=== PATIENT | male | born 1950 | race Caucasian/White ===

== ENCOUNTER 2016-06-05 07:02 | Emergency (ER) | payer OTHER ==
[2016-06-05 07:14] VITALS: BP 127/80
--- NOTE | 2016-06-05 07:43 | UC ---
Carlos Alonzo Alok, scribed for Karoline Fishman MD on 06/05/16 at 0730 . Respiratory Complaint HPI - HPI Summary HPI Summary: 65 y/o male presents to the with a productive cough with yellow sputum for the past three days. The pt has not taken any OTC medications for his pain or cough. Pt also c/o jaw pain from his ears down to his jaw on both sides of his face, facial pressure, ear fullness, as well as wheezing. Pt denies nausea, vomit, or fever. no chills or rash. Pt uses symbicort daily. Pt has an albuterol MDI does not use. Pt with a h/o PNA and wanted to evaluated for same. Pt is allergic to penicillins which cause rashes. Pt is a former smoker and denies ETOH use and exposure for chemicals at the work place. PMHx includes PNA 3 years ago. PSHx includes appendicitis and umbilical hernia. Pt's medication reviewed at this visit - History of Current Complaint Chief Complaint: UCRespiratory Stated Complaint: CONGESTION COUGH Time Seen by Provider: 06/05/16 07:07 Hx Obtained From: Patient Onset/Duration: Gradual Onset, Lasting Days, Still Present Severity Initially: Moderate Severity Currently: Moderate Pain Intensity: 4 Pain Scale Used: 0-10 Numeric Character: Sputum Description: - Yellow Aggravating Factors: Nothing Alleviating Factors: Nothing Associated Signs And Symptoms: Positive: Wheezing - Allergies/Home Medications Allergies/Adverse Reactions: Allergies Allergy/AdvReac Type Severity Reaction Status Date / Time Penicillins Allergy Unknown Verified 06/05/16 07:14 Reaction Details Home Medications: Home Medications Budesonide/Formote 160/4.5(NF) [Symbicort 160/4.5 (NF)] 06/05/16 [History Confirmed 06/05/16] PMH/Surg Hx/FS Hx/Imm Hx Previously Healthy: Yes Endocrine History Of: Denies: Diabetes Cardiovascular History Of: Reports: Hypertension Respiratory History Of: Reports: COPD - Surgical History Surgical History: Yes Surgery Procedure, Year, and Place: appendectomy. umbilical hernia - Family History Known Family History: Positive: Cardiac Disease, Hypertension - Social History Occupation: Employed Full-time Alcohol Use: None Substance Use Type: None Smoking Status (MU): Former Smoker Review of Systems Constitutional: Negative Skin: Negative Eyes: Negative ENT: Sore Throat, Ear Ache, Nasal Discharge, Other - Jaw pain Respiratory: Cough, Other - Wheezing Cardiovascular: Negative Gastrointestinal: Negative Genitourinary: Negative Motor: Negative Neurovascular: Negative Musculoskeletal: Negative Neurological: Negative Psychological: Negative All Other Systems Reviewed And Are Negative: Yes Physical Exam Triage Information Reviewed: Yes Appearance: Well-Appearing, No Pain Distress, Well-Nourished Vital Signs: Initial Vital Signs Temp 98.1 F 06/05/16 07:10 Pulse 88 06/05/16 07:10 Resp 18 06/05/16 07:10 BP 127/80 06/05/16 07:10 Pulse Ox 95 06/05/16 07:10 Eye Exam: Normal Eyes: Positive: Conjunctiva Clear ENT: Positive: Hearing grossly normal, Nasal congestion, Other: - left TM obscurred by cerum, right TM + fluid, retracted turbinates inflammed and boggy + PND + erythema, no exudate uvula midline Dental Exam: Normal Neck exam: Normal Neck: Positive: 1 Respiratory Exam: Normal Respiratory: Positive: Wheezing - few, scattered wheezes, Other: - speaking full , easy sentences No increased WOB, accessory muscle uses + intermittent, coarse cough Cardiovascular Exam: Normal Cardiovascular: Positive: RRR, No Murmur Abdominal Exam: Normal Musculoskeletal Exam: Normal Neurological Exam: Normal Neurological: Positive: Alert, Muscle Tone Normal Psychological Exam: Normal Skin Exam: Normal UC Diagnostic Evaluation - Laboratory O2 Sat by Pulse Oximetry: 95 - Radiology Xray Interpretation: Positive (See Comments) - CXR - IMPRESSION: HYPERINFLATION , CONSISTENT WITH COPD. NO ACTIVE CARDIOPULMONARY DISEASE. Radiology Interpretation Completed By: Radiologist Re-Evaluation - Re-Evaluation First Eval Re-Evaluation Time: 07:52 Respiratory Course/Dx - Course Course Of Treatment: Pt presents with 3 days face congestion, pnd, productive cough and fatigue. Pt denies fevers, chills concerned for PNA. Pt with sinus congestion, PND and wheeze on exam. dif: pna, bronchitis, sinusitis. Will check CXR. encourage Albuterol Q4hr. hydrate. abx. flonase - Differential Dx/Diagnosis Provider Diagnoses: sinusitis Discharge - Discharge Plan Condition: Stable Disposition: HOME Prescriptions: Azithromycin TAB* [Zithromax TAB (Z-JOAQUIN) 250 mg #6 tabs] 2 tab PO .TODAY, THEN 1 DAILY #1 joaquin Fluticasone NASAL SPRAY 50MCG* [Flonase NASAL SPRAY 50MCG*] 1 spray BOTH NARES DAILY #1 btl Patient Education Materials: Sinusitis (ED), Acute Bronchitis (ED) Referrals: No Primary Care Phys,NOPCP [Primary Care Provider] - Additional Instructions: - Stay well hydrated. Drink plenty of non-alcoholic, non-caffinated beverages. - Use albuterol - 2 puffs every 4 hours - Take flonase, nasal spray as instructed - Take antibiotics as prescribed until gone - Okay to alternate ibuprofen (advil, motrin) and tylenol every 3hours as needed for pain or fever - After you have been on antibiotics for 2 days - change your toothbrush and your pillowcase. These infections are spread by secretions - do NOT share eating or drinking utensils - clean items you share with other people such as cell phones, computer mouse, TV remote, computer tablets, etc The documentation as recorded by the Carlos vickers Alok accurately reflects the service I personally performed and the decisions made by me, Karoline Fishman MD.
--- NOTE | 2016-06-05 08:10 | RAD ---
HISTORY: Cough COMPARISONS: October 25, 2015 VIEWS: 2: Frontal dual-energy and lateral views of the chest. FINDINGS: CARDIOMEDIASTINAL SILHOUETTE: The cardiomediastinal silhouette is normal. ZAIDA: The zaida are normal. PLEURA: The costophrenic angles are sharp. No pleural abnormalities are noted. LUNG PARENCHYMA: There is hyperinflation with flattening of the diaphragm and expansion of the AP diameter of the chest. ABDOMEN: The upper abdomen is clear. There is no subphrenic gas. BONES AND SOFT TISSUES: No bone or soft tissue abnormalities are noted. OTHER: None. IMPRESSION: HYPERINFLATION, CONSISTENT WITH COPD. NO ACTIVE CARDIOPULMONARY DISEASE.
== END 2016-06-05 08:04 | disposition home or self-care (01) ==
LOC: UCEAST 07:02
DX: J32.9 Chronic sinusitis, unspecified (principal); Z88.0 Allergy status to penicillin; I10 Essential (primary) hypertension; J44.9 Chronic obstructive pulmonary disease, unspecified; Z87.891 Personal history of nicotine dependence
CPT/HCPCS: 71020; 99212; G0463

== ENCOUNTER 2017-01-09 15:08 | Emergency (ER) | payer MEDICARE, OTHER ==
[2017-01-09 15:19] VITALS: BP 117/72
[2017-01-09] MEDS ORDERED: Ibuprofen TAB* 600 MG PO ONE (16:28)
--- NOTE | 2017-01-09 16:36 | UC ---
Abdominal Pain Male HPI - History of Current Complaint Chief Complaint: UCUpperExtremity Stated Complaint: MUSCLE STRAIN Time Seen by Provider: 01/09/17 15:52 Hx Obtained From: Patient Onset/Duration: Gradual Onset Timing: Constant Severity Initially: Mild Location: Discrete At: LLQ Radiates: No Character: Sharp Aggravating Factor(s): Movement Alleviating Factor(s): Position Associated Signs And Symptoms: Positive: Nausea - Allergies/Home Medications Allergies/Adverse Reactions: Allergies Allergy/AdvReac Type Severity Reaction Status Date / Time Penicillins Allergy Unknown Verified 01/09/17 15:19 Reaction Details PMH/Surg Hx/FS Hx/Imm Hx Cardiovascular History: Hypertension Respiratory History: COPD - Surgical History Surgical History: Yes Surgery Procedure, Year, and Place: appendectomy. umbilical hernia - Family History Known Family History: Positive: Cardiac Disease, Hypertension - Social History Alcohol Use: None Substance Use Type: None Smoking Status (MU): Former Smoker Review of Systems Constitutional: Negative Skin: Negative Eyes: Negative ENT: Negative Respiratory: Negative Cardiovascular: Negative Gastrointestinal: Abdominal Pain Genitourinary: Negative Motor: Negative Neurovascular: Negative All Other Systems Reviewed And Are Negative: Yes Physical Exam Triage Information Reviewed: Yes Appearance: Well-Appearing, Other: Vital Signs: Initial Vital Signs Temp 37.1 C 01/09/17 15:14 Pulse 100 01/09/17 15:14 Resp 18 01/09/17 15:14 BP 117/72 01/09/17 15:14 Pulse Ox 96 01/09/17 15:14 Vital Signs Reviewed: Yes Neck: Positive: Supple Respiratory: Positive: Chest non-tender, Lungs clear, Normal breath sounds, No respiratory distress Cardiovascular Exam: Normal Cardiovascular: Positive: RRR Abdominal Exam: Normal Abdomen Description: Positive: Guarding, Other: - LLQ tenderness with guarding. No CVA tenderness Normal exam. Skin Exam: Normal Abd Pain Male Course/Dx - Course Course Of Treatment: Given his age and finding, concern for diverticulitis. Will need CT with contrast for further evaluation. He wants to go to the ED in a private car. - Differential Dx/Clinical Impression Differential Diagnosis/HQI/PQRI: Diverticulitis Provider Diagnoses: LLQ pain. Diverticulitis - Physician Notification/Consults Instructed by Provider To: Transfer - Dr. Guillen of the ED aware. Discharge - Discharge Plan Condition: Critical Disposition: TRANS HIGHER LVL OF CARE FAC Discharge Disposition Comment: Transfer via care Referrals: Stevie Booth MD [Primary Care Provider] -
== END 2017-01-09 16:49 | disposition short-term general hospital (02) ==
LOC: UCEAST 15:08
DX: R10.32 Left lower quadrant pain (principal); K57.92 Diverticulitis of intestine, part unspecified, without perforation or abscess without bleeding
CPT/HCPCS: 99212; A9270-GY; G0463

== ENCOUNTER → 2017-01-09 17:38 | Emergency (ER) | payer MEDICARE, OTHER ==
[2017-01-09 17:44] VITALS: BP 109/75
== END | disposition left against medical advice (07) ==
LOC: ED 17:38
DX: R10.9 Unspecified abdominal pain (principal); Z53.21 Procedure and treatment not carried out due to patient leaving prior to being seen by health care provider

== ENCOUNTER 2017-01-10 00:49 | Emergency (ER) | payer MEDICARE, OTHER ==
[2017-01-10] MEDS ORDERED: NS 0.9% 1000 ML* 1,000 ML IV ONE (02:34)
[2017-01-10 03:10] LABS: Hematocrit 46 % (42-52); Hemoglobin 15.8 g/dl (14.0-18.0); Mean Corpuscular HGB Conc 34 g/dl (31-36); Mean Corpuscular Hemoglobin 33 pg (27-31); Mean Corpuscular Volume 96 fL (80-94); Mean Platelet Volume 8 um3 (7.4-10.4); Red Blood Count 4.85 10^6/ul (4.0-5.4); Red Cell Distribution Width 14 % (10.5-15); White Blood Count 9.7 10^3/ul (3.5-10.8)
[2017-01-10 03:26] LABS: ALT 25 U/L (7-52); AST 22 U/L (13-39); Albumin 4.1 g/dL (3.2-5.2); Alkaline Phosphatase 60 U/L (34-104); Anion Gap 8 mmol/L (2-11); BUN/Creatinine Ratio 18.8 (8-20); Blood Urea Nitrogen 25 mg/dL (6-24); CO2 Carbon Dioxide 22 mmol/L (22-32); Calcium 8.9 mg/dL (8.6-10.3); Chloride 105 mmol/L (101-111); EGFR African American 69.4 (>60); Globulin 2.6 g/dL (2-4); Glucose 120 mg/dL (70-100); Lipase < 10 U/L (11.0-82.0); Potassium 3.9 mmol/L (3.5-5.0); Sodium 135 mmol/L (133-145); Total Protein 6.7 g/dL (6.4-8.9)
[2017-01-10 04:29] LABS: Urine Bacteria Absent (Absent); Urine Bilirubin Negative (Negative); Urine Glucose Negative (Negative); Urine Nitrite Negative (Negative)
[2017-01-10] MEDS ORDERED: Levofloxacin 750 MG IVPREMIX(* 750 MG/150 ML BAG IVPB ONE (04:40)
[2017-01-10] MEDS ORDERED: metroNIDAZOLE IV 500 MG/100ML* 500 MG/100 ML BAG IVPB ONE (04:41)
--- NOTE | 2017-01-10 05:50 | ED ---
Osei Alonzo Gabriel scribed for Satnam Abreu on 01/10/17 at 0228 . Abdominal Pain/Male - HPI Summary HPI Summary: This patient is a 66 year old M presenting to [facility] with a chief complaint of ABD pain since earlier today. The patient rates the pain 7/10 in severity and describes it as a sharp pain. Symptoms aggravated by movement. Patient denies n/ v and fever. Patient was seen at for flank pain and they recommended he come to the ER. When he first arrived the wait was too long so he just recently returned. Patient has a history of kidney stones - History of Current Complaint Chief Complaint: EDAbdPain Stated Complaint: PAIN LT SIDE Time Seen by Provider: 01/10/17 02:19 Hx Obtained From: Patient Onset/Duration: Still Present Timing: Constant Pain Intensity: 7 Pain Scale Used: 0-10 Numeric Radiates: Yes Radiates to: Flank Character: Sharp Aggravating Factor(s): Movement Associated Signs And Symptoms: Negative: Fever, Nausea, Vomiting - Allergies/Home Medications Allergies/Adverse Reactions: Allergies Allergy/AdvReac Type Severity Reaction Status Date / Time Penicillins Allergy Unknown Verified 01/10/17 01:17 Reaction Details PMH/Surg Hx/FS Hx/Imm Hx Previously Healthy: No Endocrine/Hematology History: Denies: Hx Diabetes Cardiovascular History: Reports: Hx Hypertension Respiratory History: Reports: Hx Chronic Obstructive Pulmonary Disease (COPD) History: Reports: Hx Kidney Stones - Surgical History Surgery Procedure, Year, and Place: appendectomy. umbilical hernia - Immunization History Date of Tetanus Vaccine: unk Date of Influenza Vaccine: 2016 Infectious Disease History: No Infectious Disease History: Denies: History Other Infectious Disease, Traveled Outside the [place] in Last 30 Days - Family History Known Family History: Positive: Cardiac Disease, Hypertension - Social History Alcohol Use: Rare Hx Substance Use: No Substance Use Type: Reports: None Hx Tobacco Use: No Smoking Status (MU): Former Smoker Review of Systems Negative: Fever Positive: Abdominal Pain. Negative: Vomiting, Nausea All Other Systems Reviewed And Are Negative: Yes Physical Exam - Summary Physical Exam Summary: Appearance: Well appearing, no pain distress Skin: warm, dry, reflects adequate perfusion Head/face: normal Eyes: EOMI, ROSALVA ENT: normal Neck: supple, non-tender Respiratory: CTA, breath sounds present Cardiovascular: RRR, pulses symmetrical Abdomen: soft, tenderness in LLQ Bowel: present Musculoskeletal: normal, strength/ROM intact Neuro: normal, sensory motor intact, A&Ox3 Triage Information Reviewed: Yes Vital Signs On Initial Exam: Initial Vitals Temp Pulse Resp BP Pulse Ox 98.3 F 88 16 119/65 94 01/10/17 01:10 01/10/17 01:10 01/10/17 01:10 01/10/17 01:10 01/10/17 01:10 Vital Signs Reviewed: Yes - Pelon Coma Scale Coma Scale Total: 15 Diagnostics - Vital Signs Vital Signs Temp Pulse Resp BP Pulse Ox 01/10/17 01:10 98.3 F 88 16 119/65 94 - Laboratory Result Diagrams: 01/10/17 02:55 01/10/17 02:55 Lab Statement: Any lab studies that have been ordered have been reviewed, and results considered in the medical decision making process. - CT CT ABD/Pelvis CT Interpretation Completed By: Radiologist - uncomplicated sigmoid diverticulitis, mildly fatty liver, punctate right renal stone, and mildly enlarged prostate ED physician has reviewed this radiology report and agrees. Abdominal Pain Fem Course/Dx - Course Assessment/Plan: This patient is a 66 year old M presenting to [facility] with a chief complaint of ABD pain since earlier today. CT ABD/Pelvis reveals, per radiologist, uncomplicated sigmoid diverticulitis, mildly fatty liver, punctate right renal stone, and mildly enlarged prostate. Blood and urine were drawn without any significant abnormalities. In the ED course the patient was given IV fluids, Levoflaxcin, and metronidazole. Patient will be discharged with prescription for ibuprofen, levofloxacin, and metronidazole. Patient and follow up from Dr. Booth. The patient is agreeable with this plan. - Diagnoses Differential Diagnosis/HQI/PQRI: Appendicitis, Benign Prostatic Hyperplasia, Constipation, Diverticulitis, Pancreatitis, Renal Colic, Ureteral Stone Provider Diagnoses: Diverticulitis Discharge - Discharge Plan Condition: Stable Disposition: HOME Prescriptions: Ibuprofen TAB* [Motrin TAB* 600 MG] 600 mg PO Q8H PRN #20 tab MDD 3 PRN Reason: Pain Levofloxacin TAB* [Levaquin TAB*] 500 mg PO DAILY #10 tab Metronidazole [Flagyl 500 MG TAB] 500 mg PO TID #30 tab Patient Education Materials: Ibuprofen (By mouth), Metronidazole (By mouth), Levofloxacin (By mouth), Diverticulitis (ED) Referrals: Stevie Booth MD [Primary Care Provider] - 3 Days Additional Instructions: RETURN TO THE EMERGENCY DEPARTMENT FOR CHANGING OR WORSENING SYMPTOMS. The documentation as recorded by the Osei vickers Gabriel accurately reflects the service I personally performed and the decisions made by , Satnam Abreu.
[2017-01-10 07:32] VITALS: BP 116/78
--- NOTE | 2017-01-10 11:15 | RAD ---
INDICATION: Abdominal pain, diverticulitis. COMPARISON: There are no prior studies available for comparison. TECHNIQUE: A CT scan of the abdomen and pelvis was performed without intravenous or oral contrast. Contiguous axial sections were obtained from the lung bases through the symphysis pubis. Images were reconstructed in the coronal and sagittal planes. FINDINGS: There is mild dependent bilateral lower lobe subsegmental atelectasis. No pleural effusion is present. The liver is decreased in attenuation consistent with fatty infiltration. No significant focal abnormality is seen on this noncontrast study. No calcified gallstones are noted. The spleen and pancreas appear to be within normal limits. The kidneys and adrenal glands appear normal in size. There are several small 1 to 2 mm punctate right renal calculi. No hydronephrosis is seen. The prostate gland appears moderately enlarged measuring 5.5 cm in transverse dimension. The aorta is normal in caliber with mild calcific plaque present. No significant enlarged retroperitoneal lymph nodes are seen. The stomach, small and large bowel appear nondistended. The patient is status post appendectomy by history. There is moderate to severe sigmoid diverticulosis. In addition there is wall thickening and stranding around the proximal sigmoid colon most consistent with diverticulitis. No abscess is seen. No free intraperitoneal air or fluid is seen. No significant focal osseous abnormality is seen. IMPRESSION: 1. FINDINGS MOST CONSISTENT WITH DIVERTICULITIS OF THE SIGMOID COLON, NO EVIDENCE FOR ABSCESS. 2. HEPATIC STEATOSIS. 3. SMALL NONOBSTRUCTING RIGHT RENAL CALCULI.
== END 2017-01-10 07:32 | disposition home or self-care (01) ==
LOC: ED 00:49
DX: K57.92 Diverticulitis of intestine, part unspecified, without perforation or abscess without bleeding (principal); R10.9 Unspecified abdominal pain; Z87.891 Personal history of nicotine dependence
CPT/HCPCS: 36415; 74176; 80053; 81003; 81015; 83690; 85025; 85610; 85730; 96365; 96374; 99284; J3490

== ENCOUNTER 2017-03-07 09:06 | Emergency (ER) | payer BC, MEDICARE, OTHER ==
[2017-03-07 09:23] VITALS: BP 129/87
--- NOTE | 2017-03-07 09:55 | UC ---
Ear Complaint HPI - HPI Summary HPI Summary: 1-2 WEEKS OF RIGHT EAR PAIN. NO DRAINAGE FROM THE EAR. NO CHANGE IN BASELINE HEARING/TINNITIS. WENT TO AN OUTSIDE UC 3 DAYS AGO AND TX FOR RIGHT EAR INFECTION WITH ZPAK. PT HAS TAKEN 4 DOSES AND FEELS NO BETTER. HERE FOR RECHECK. DENIES FEVER OR OTHER URI SX. HAS A H/O EAR INFECTIONS AND HAS SEEN ENT IN THE PAST. - History of Current Complaint Chief Complaint: UCEar Stated Complaint: EAR PAIN Time Seen by Provider: 03/07/17 09:42 Hx Obtained From: Patient Onset/Duration: Gradual Onset, Lasting Weeks, Still Present Severity Initially: Moderate Severity Currently: Moderate Pain Intensity: 7 Pain Scale Used: 0-10 Numeric Aggravating Factors: Nothing Alleviating Factors: Nothing Associated Signs/Symptoms: Negative: Discharge, Hearing Loss, Foreign Body Sensation, Trauma to Ear, URI Symptoms - Allergies/Home Medications Allergies/Adverse Reactions: Allergies Allergy/AdvReac Type Severity Reaction Status Date / Time Penicillins Allergy Unknown Verified 01/10/17 01:17 Reaction Details Home Medications: Home Medications Azithromycin TAB* [Zithromax TAB (Z-JOAQUIN) 250 mg #6 tabs] 250 mg PO DAILY [History Confirmed 03/07/17] PMH/Surg Hx/FS Hx/Imm Hx Cardiovascular History: Hypertension Respiratory History: COPD - Surgical History Surgical History: Yes Surgery Procedure, Year, and Place: appendectomy. umbilical hernia - Family History Known Family History: Positive: Cardiac Disease, Hypertension - Social History Alcohol Use: Rare Substance Use Type: None Smoking Status (MU): Former Smoker Review of Systems Constitutional: Negative ENT: Ear Ache Respiratory: Negative Cardiovascular: Negative Gastrointestinal: Negative All Other Systems Reviewed And Are Negative: Yes Physical Exam Triage Information Reviewed: Yes Appearance: Well-Appearing, No Pain Distress, Well-Nourished Vital Signs: Initial Vital Signs Temp 97.6 F 03/07/17 09:18 Pulse 91 03/07/17 09:18 Resp 18 03/07/17 09:18 BP 129/87 03/07/17 09:18 Pulse Ox 95 03/07/17 09:18 Vital Signs Reviewed: Yes Eyes: Positive: Conjunctiva Clear ENT: Positive: Hearing grossly normal, Pharynx normal, TMs normal, Other - BILATERAL EAC OCCLUDED WITH CERUMEN Neck: Positive: Supple, Nontender, No Lymphadenopathy Respiratory Exam: Normal Cardiovascular Exam: Normal Abdomen Description: Positive: Soft Musculoskeletal: Positive: No Edema Neurological: Positive: Alert Psychological: Positive: Age Appropriate Behavior Skin: Negative: rashes Ear Complaint Course/Dx - Course Course Of Treatment: BILATERAL EAC SUCCESSFULLY IRRIGATED BY RN - Differential Dx/Diagnosis Provider Diagnoses: BILATERAL CERUMEN IMPACTION/EAR PAIN Discharge - Discharge Plan Condition: Stable Disposition: HOME Patient Education Materials: Earache (ED) Referrals: Stevie Booth MD [Primary Care Provider] - If Needed Jefferson Zuñiga MD [Medical Doctor] - If Needed Additional Instructions: BOTH YOUR EARS WERE BLOCKED WITH WAX WHICH WE SUCCESSFULLY REMOVED WITH IRRIGATION. HOPEFULLY YOUR PAIN WILL RESOLVE NOW THAT THE CANALS ARE CLEAR. NO SIGN OF INFECTION ON EXAM TODAY. CALL ENT FOR AN APPT IF YOUR SYMPTOMS DO NOT RESOLVE. EAR PAIN, NON-SPECIFIC There are many causes of ear pain in adults. Pain that's felt in the ear can actually be coming from somewhere nearby. This is called "referred pain." Problems in the teeth, throat, or jaw joint (TMJ) often cause ear pain. Sometimes the physical exam or medical history suggests a treatable cause. If not, we may wait for the pain to go away. New symptoms may offer a clue to the cause of the pain. Report any changes to your care provider. These are some conditions that can cause ear pain, but may not be obvious from physical examination: Eardrum injury Pressure changes (barotrauma) due to swimming or shock waves Mild trauma such as Q-tip injury or finger-picking the outer ear Mild outer ear infection (swimmer's ear) Low-grade or chronic middle ear infection Mastoiditis (infection in the bone behind the ear) TMJ syndrome or arthritis of the jaw Pressure from hard earwax Tooth infection Infected tonsil Sinus infection Nerve disease such as Childers's Palsy Follow your care provider's treatment recommendations. Let the ear rest. Don't insert cotton swabs, dig at the ear with your finger, or force your ears to "pop." If you're not improving after a few days, or if new symptoms arise, see the doctor. Watch for: Decreased hearing Spreading pain or headache Drainage or bleeding from the ear Fever Weakness of the face muscles Other new symptoms
== END 2017-03-07 10:41 | disposition home or self-care (01) ==
LOC: UCEAST 09:06
DX: H61.23 Impacted cerumen, bilateral (principal); Z87.891 Personal history of nicotine dependence; J44.9 Chronic obstructive pulmonary disease, unspecified; I10 Essential (primary) hypertension; Z88.0 Allergy status to penicillin
CPT/HCPCS: 99213; G0463